=== PATIENT | male | born 1965 | race Caucasian/White ===

== ENCOUNTER 2021-03-20 09:53 | Emergency (ER) | payer MEDICAID, OTHER ==
[~2021-03-20] VITALS: Ht 180.3 cm; Wt 71.9 kg
[2021-03-20 10:34] LABS: BASOPHILS % (AUTO) 0.6 % (0-1); EOSINOPHILS % (AUTO) 0.4 % (0-6); HEMATOCRIT 45.4 % (42.0-52.0); HEMOGLOBIN 15.5 g/dl (14.0-17.9); LYMPHOCYTES # (AUTO) 1.6 X10'3 (1.1-4.8); LYMPHOCYTES % (AUTO) 20.5 % (21-51); MEAN CORPUSCULAR HEMOGLOBIN 30.9 PG (27.0-31.0); MEAN CORPUSCULAR HGB CONC 34.1 g/dL (33.0-36.5); MEAN CORPUSCULAR VOLUME 90.6 FL (78-98); MEAN PLATELET VOLUME 8.4 FL (7.4-10.4); MONOCYTES # (AUTO) 0.4 X10'3 (0-0.9); MONOCYTES % (AUTO) 4.8 % (2-12); NEUTROPHILS # (AUTO) 5.8 X10'3 (1.8-7.7); NEUTROPHILS % (AUTO) 73.7 % (42-75); PLATELET COUNT 300 X10'3 (140-440); RED BLOOD COUNT 5.01 X10'6 (4.70-6.10); RED CELL DISTRIBUTION WIDTH 13.7 % (11.5-14.5); WHITE BLOOD COUNT 7.9 X10'3 (4.5-11.0)
[2021-03-20 10:57] LABS: ALANINE AMINOTRANSFERASE 19 U/L (12-78); ALBUMIN 3.6 G/DL (3.4-5.0); ALKALINE PHOSPHATASE 57 IU/L (46-116); ANION GAP 12 (8-16); ASPARTATE AMINO TRANSFERASE 17 U/L (10-37); BILIRUBIN,TOTAL 1.2 MG/DL (0.1-1.0); BLOOD UREA NITROGEN 22 MG/DL (7-18); BUN/CREATININE RATIO 19.5 (5.4-32.0); CALCIUM 8.7 MG/DL (8.5-10.1); CHLORIDE 106 MMOL/L (99-107); CREATININE 1.13 MG/DL (0.60-1.10); GLUCOSE 173 MG/DL (70-104); POTASSIUM 3.6 MMOL/L (3.5-5.1); SODIUM 141 MMOL/L (135-145); TOTAL CARBON DIOXIDE 22.6 MMOL/L (24-32); TOTAL PROTEIN 7.1 G/DL (6.4-8.2); eGFR 68 ML/MIN
[2021-03-20 11:07] LABS: CLARITY,URINE SLIGHTLY CLOUDY (Clear); COLOR,URINE YELLOW (Yellow); GLUCOSE, URINE NEGATIVE (Neg); KETONES,URINE NEGATIVE (Neg); LEUKOCYTE ESTERASE ,URINE NEGATIVE (Neg); NITRITES, URINE NEGATIVE (Neg); OCCULT BLOOD,URINE NEGATIVE (Neg); PROTEIN,URINE NEGATIVE (Neg)
[2021-03-20 11:08] LABS: ETHANOL < 0.010 GM/DL (0.0-0.010)
[2021-03-20 11:13] LABS: UA COLLECTION TYPE CLN CATCH MIDSTREAM
[2021-03-20 11:14] LABS: AMORPHOUS PHOSPHATES 2+; BACTERIA,URINE NONE SEEN /HPF (Neg); RBC,URINE NONE SEEN /HPF (0-2); SQUAMOUS EPITHELIAL CELL,UR FEW /LPF (FEW); URINE AMPHETAMINE SCREEN NEGATIVE (Neg); URINE BARBITUATE SCREEN NEGATIVE (Neg); URINE BENZODIAZEPINES SCREEN NEGATIVE (Neg); URINE CANNABINOID SCREEN NEGATIVE (Neg); URINE COCAINE SCREEN NEGATIVE (Neg); URINE METHADONE SCREEN NEGATIVE (Neg); URINE OPIATE SCREEN NEGATIVE (Neg); URINE PHENCYCLIDINE SCREEN NEGATIVE (Neg); WBC,URINE NONE SEEN /HPF (0-4)
--- NOTE | 2021-03-20 11:51 | NUR ---
breaking primary RN, pt is laying on his right side, visitor present, eyes closed, regular breathing observed, no needs at this time
--- NOTE | 2021-03-20 11:55 | NUR ---
PACKET FAXED TO [facility]
--- NOTE | 2021-03-20 12:02 | NUR ---
pt is being seen by DEION Fernandes, with GF present, calm at this time
--- NOTE | 2021-03-20 15:52 | NUR ---
Patient accepted at [facility] [place] pending negative COVID test (sent).
--- NOTE | 2021-03-20 18:38 | NUR ---
The patient is resting comfortably on his bed and has eaten approximately 75% of his evening meal. Discussed plan to be transferred to a psychiatric hospital and made him aware of the basic things he can expect to happen once admitted.
[2021-03-20 18:52] VITALS: BP 132/102
== END 2021-03-20 19:03 ==
LOC: ER 09:55
DX: R45.851 Suicidal ideations (principal); Z20.822 Contact with and (suspected) exposure to COVID-19; R63.4 Abnormal weight loss; F32.9 Major depressive disorder, single episode, unspecified; G47.00 Insomnia, unspecified; Z68.22 Body mass index [BMI] 22.0-22.9, adult
CPT/HCPCS: 36415; 80053; 80305; 80320; 81001; 84443; 85025; 87426; 99285